=== PATIENT | female | born 1995 | race Caucasian/White ===

== ENCOUNTER 2023-03-01 07:24 | Inpatient (IN) ==
[2023-03-01] MEDS ORDERED: OXYTOCIN 30 UNITS/500 ML BAG IV PRN ×3 (07:42→14:27)
[2023-03-01] MEDS ORDERED: LIDOCAINE 1% LOCAL 20 ML VIAL INFIL PRN (07:42)
[2023-03-01 08:23] LABS: Hematocrit (blood only) 37.9 % (37.0-47.0); Hemoglobin 13.2 g/dl (12.0-16.0); Mean Corpuscular Hemoglobin 31.4 pg (25.0-34.0); Mean Corpuscular Hgb Conc 34.8 g/dL (32.0-36.0); Platelet Count 170 K/uL (130-400); RDW Coefficient of Variation 13.2 % (11.5-14.5); RDW Standard Deviation 42.7 fL (36.4-46.3); Red Blood Count 4.21 M/uL (4.20-5.40); White Blood Count 11.11 K/ul (4.8-10.8)
[2023-03-01] MEDS: LACTATED RINGER'S 1,000 ML IV PRN ×3 (08:25→12:31)
[2023-03-01] MEDS ORDERED: fentaNYL citrate PF 100 MCG/2 ML VIAL ONE (10:16)
[2023-03-01] MEDS ORDERED: BUPIVACAINE 0.25% PF 30 ML VIAL ONE (10:16)
[2023-03-01] MEDS ORDERED: SODIUM CHLORIDE 0.9% PF INJ 10 ML VIAL ONE (10:16)
[2023-03-01] MEDS ORDERED: LIDOCAINE 2%/EPINEPHRINE 1:200,000 20 ML PF ONE (10:16)
[2023-03-01] MEDS ORDERED: ePHEDrine sulfate 50 MG/ML AMP ONE (10:16)
[2023-03-01] MEDS ORDERED: fentaNYL 2MCG/ML ROPIVACAINE 1.25MG/ML 100 ML BAG EPI ONE (10:17)
--- NOTE | 2023-03-01 10:41 | History & Physical Report ---
Date of Service March 01, 2023 Assessment & Plan (1) Encounter for induction of labor: Admission and Anticipated Discharge Date Admission Date: March 01, 2023 History of Present Illness Primary Care Provider: Idalia Hyatt DO Liane is a 27 yo at 40w1d PMHx asthma, depression, GERD, migraine here for induction of labor. She had a singh bulb placed 03/01/23, experienced an episode of hypotension and bradycardia, the singh bulb was subsequently removed. She recovered quickly. She is GBS and Rh negative, received rhogam. Mom is doing well. Planning to breastfeed. FOB is present. Allergies Allergy/AdvReac Type Severity Reaction Status Date / Time aripiprazole [From [facility]] Allergy Intermediate "Zombie" Verified 03/01/23 07:46 Home Medications Medication Instructions Recorded Confirmed Type albuterol sulfate 90 mcg/actuation 2 puff inhalation Q6H PRN 02/07/21 02/28/23 Rx aerosol inhaler (Ventolin HFA) shortness of breath or wheezing #8.5 grams prenat.vits,mary,[id number] 2 tab PO DAILY 04/27/22 03/01/23 History folic acid 5 mg PO DAILY 07/21/22 03/01/23 History Past Med/Surg History Medical History Asthma Depression GERD (gastroesophageal reflux disease) Migraine Surgical History H/O wisdom tooth extraction History of carpal tunnel surgery of right wrist Family History Brother Asthma Grandmother Diabetes Myocardial infarction Father Heart disease Myocardial infarction Hypertension Other Positive home test Denies family history of Ovarian cancer Alzheimer disease Dementia Kidney disease Breast cancer Lung cancer Lung disease Stroke Social History Smoking Status: Never smoker Second Hand Exposure: No; Do You Dip or Chew Tobacco: No; Hx Alcohol Use: No Hx Substance Use: No Preferred Language: Nauruan Communication Ability: Effective Visual Impairment: No Limitations Hearing Ability: Normal 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 Beliefs That Will Affect Care: None marital status: marital status details: Derian (29) [phone] Current Living Situation: Spouse and Family Current Living Situation Comment: lives with Spouse, daughter, 2 cats, 1dog, daughter changing litter current occupational status: employed 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 Other Information That Helps Us Care for You: No Feels Safe at Home: Yes Childhood Exposure to Second-Hand Smoke: No Diet: regular caffeine: Yes Dental Care, Regularly: Yes Physical Activity Frequency: Daily Seatbelt Use: always Sunscreen Use: Yes Assistive Devices: None Physical Exam Physical Exam: General: patient resting in mild discomfort, NAD, non-toxic in appearance, AA&O x 4, answers questions appropriately Skin: warm, dry, intact HEENT: NC/AT, anicteric sclera, conjunctiva without injection, moist mucus membranes Heart: +S1/S2, regular, no m/r/g Lungs: equal air entry bilaterally, no rales/rhonchi/wheezes Abd: +BS, gravid uterus Ext: warm, no clubbing/cyanosis or edema Neuro: nonfocal, patient AA&O x 4, speech intact, no facial droop, moving all extremities on command. Results & Data Results & Data Vital Signs (Past 12 Hours) Vital Signs Temp Pulse Resp BP Pulse Ox 03/01/23 07:48 36.7 C 67 20 107/73 03/01/23 10:36 65 99 03/01/23 10:31 65 122/77 98 03/01/23 09:37 77 18 115/71 03/01/23 08:25 78 18 123/82 03/01/23 07:43 67 107/73 Laboratory Results 03/01/23 Range/Units 07:53 WBC 11.11 H (4.8-10.8) K/ul RBC 4.21 (4.20-5.40) M/uL Hgb 13.2 (12.0-16.0) g/dl Hct 37.9 (37.0-47.0) % MCV 90.0 (80.0-100.0) fL MCH 31.4 (25.0-34.0) pg MCHC 34.8 (32.0-36.0) g/dL RDW Std Deviation 42.7 (36.4-46.3) fL RDW Coeff of Tatiana 13.2 (11.5-14.5) % Plt Count 170 (130-400) K/uL MPV 11.0 (9.4-12.4) fL Supervising Physician Co-Signing Physician Notes Patient seen and evaluated and agree with the above findings and plan Resident Activity Tracking Resident Involvement: Resident Care Provided Care Provided: Adult Hospital Medicine
[2023-03-01] MEDS ORDERED: fentaNYL 2MCG/ML ROPIVACAINE 1.25MG/ML 100 ML BAG EPI PRN (10:42)
[2023-03-01] MEDS ORDERED: NALBUPHINE HCL INJ 10 MG/ML AMP IV PRN (10:42)
[2023-03-01] MEDS ORDERED: NALOXONE HCL 1 MG in SODIUM CHLORIDE 0.9% 1000ML 1,000 ML IV PRN (10:42)
[2023-03-01] MEDS ORDERED: NALOXONE HCL 0.4 MG/1 ML VIAL/CARP IV PRN (10:42)
[2023-03-01] MEDS ORDERED: fentaNYL citrate PF 100 MCG/2 ML VIAL EPI STA (10:42)
[2023-03-01] MEDS ORDERED: ROPIVACAINE 0.5% PF 5 MG/ML 20 ML VIAL EPI PRN (10:42)
[2023-03-01] MEDS ORDERED: fentaNYL citrate PF 100 MCG/2 ML VIAL EPI PRN (10:42)
[2023-03-01] MEDS ORDERED: ePHEDrine sulfate 50 MG/ML AMP IV PRN (10:42)
[2023-03-01] MEDS ORDERED: LIDOCAINE 2%/EPINEPHRINE 1:200,000 20 ML PF EPI STA (10:42)
[2023-03-01] MEDS ORDERED: BUPIVACAINE 0.25% PF 30 ML VIAL EPI PRN (10:42)
[2023-03-01] MEDS ORDERED: SODIUM CHLORIDE 0.9% PF INJ 10 ML VIAL EPI STA (10:42)
[2023-03-01] MEDS ORDERED: LIDOCAINE 2% MPF LOCAL 5 ML VIAL EPI PRN (10:42)
[2023-03-01] MEDS ORDERED: diphenhydrAMINE 50 MG/ML VIAL IV PRN (10:42)
[2023-03-01] MEDS ORDERED: BUPIVACAINE 0.25% PF 30 ML VIAL EPI STA (10:42)
[2023-03-01] MEDS ORDERED: SODIUM CHLORIDE 0.9% PF INJ 10 ML VIAL EPI PRN (10:42)
--- NOTE | 2023-03-01 11:25 | Anesthesiology Consultation ---
Date of Service March 01, 2023 History Height/Weight Height: 5 ft 5 in Weight: 85.729 kg Allergies Allergy/AdvReac Type Severity Reaction Status Date / Time aripiprazole [From [facility]] Allergy Intermediate "Zombie" Verified 03/01/23 07:46 Medications Home Medications Medication Instructions Recorded Confirmed Last Taken albuterol sulfate 90 mcg/actuation 2 puff inhalation Q6H PRN 02/07/21 02/28/23 Unknown aerosol inhaler (Ventolin HFA) shortness of breath or wheezing #8.5 grams prenat.vits,mary,[id number] 2 tab PO DAILY 04/27/22 03/01/23 02/28/23 folic acid 5 mg PO DAILY 07/21/22 03/01/23 02/28/23 Active Medications Generic Name Dose Route Start Last Admin Trade Name Freq PRN Reason Stop Dose Admin Lactated Ringer's 1,000 mls @ 125 mls/hr 03/01/23 07:42 03/01/23 10:55 Lr IV 03/03/23 07:41 999 mls/hr .Q8H PRN Administration L&D Protocol Protocol Oxytocin 30 units in 500 mls @ 6 mls/hr 03/01/23 07:44 03/01/23 09:37 Pitocin IV 03/03/23 07:43 0.36 units/hr .Q24H PRN 6 mls/hr Labor Induction/Augmentation Titration Protocol 0.36 UNITS/HR NPO Date Last Intake of Fluids: 03/01/23 Time Last Intake of Fluids: 10:00 Date Last Intake of Solids: 02/28/23 Time Last Intake of Solids: 11:24 Past Medical History Medical History Asthma Depression GERD (gastroesophageal reflux disease) Migraine Exercise / Class Metabolic Activity II 4-5 Yardwork/Stairs/Walk up hill Past Family History Family History Brother Asthma Grandmother Diabetes Myocardial infarction Father Heart disease Myocardial infarction Hypertension Other Positive home test Denies family history of Ovarian cancer Alzheimer disease Dementia Kidney disease Breast cancer Lung cancer Lung disease Stroke Past Surgical History Surgical History (Reviewed 03/01/23 @ 10:47 by NATIVIDAD Horan H/O wisdom tooth extraction History of carpal tunnel surgery of right wrist Past Anesthesia History No Hx of Anesthesia Complications and No Family Hx of Anesthesia Complications History of PONV No Hx of PONV and No Hx of Motion Sickness Social History Smoking Status: Never smoker Do You Dip or Chew Tobacco: No Hx Alcohol Use: No Hx Substance Use: No Physical Exam Vital Signs Last Vital Signs Temp 36.7 C 03/01/23 07:48 Pulse 67 03/01/23 11:22 Resp 20 03/01/23 10:53 BP 118/73 03/01/23 11:22 Pulse Ox 97 03/01/23 11:21 Constitutional WD/WN, vitals as above cooperative ENMT Thyromental Distance: > or= 3.5 Finger Breadths Mallampati Class: II Neck trachea midline, no thyromegaly Respiratory normal respiratory effort, lungs clear to auscultation Cardiovascular RRR, no murmur, no edema Heart Sounds: normal S1 and normal S2 Palpation: normal PMI Musculoskeletal Head/Neck/Chest: normocephalic and head atraumatic Spine: normal cervical ROM Neurologic normal touch/pain/proprioception, CN's II-XI intact bilaterally (Grossly intact) and moves all extremities Psychiatric A+Ox3, euthymic affect Testing Laboratory Results 03/01/23 07:53
--- NOTE | 2023-03-01 11:48 | Labor Progress Brief Note ---
Date of Service March 01, 2023 Subjective comfortable with epidural. Assessment & Plan (1) Encounter for induction of labor: Plan will see how arom helps labor pattern. c/w pitocin. Admission and Anticipated Discharge Date Admission Date: March 01, 2023 Physical Exam Constitutional: WD/WN, vitals as above Genitourinary: Manual OB Exam: + cervical dilation 5 cm, + cervical effacement (75%), + station -2 and + amniotic fluid (arom) clear OB Exam Monitor Tracing: + external FHT monitor used, + external uterine monitor used, + category I and + normal FHT variability Results & Data Vital Signs (Past 12 Hours) Vital Signs Temp Pulse Resp BP Pulse Ox 03/01/23 07:48 98.1 F 67 20 107/73 03/01/23 11:45 64 117/72 03/01/23 11:41 99 03/01/23 11:41 73 03/01/23 11:41 76 119/87 89 L 03/01/23 11:36 63 97 03/01/23 11:35 61 112/70 03/01/23 11:31 63 97 03/01/23 11:30 60 20 112/73 03/01/23 11:26 65 97 03/01/23 11:24 64 115/72 03/01/23 11:21 65 97 03/01/23 11:22 67 118/73 03/01/23 11:20 64 117/70 03/01/23 11:18 71 119/71 03/01/23 11:16 97 03/01/23 11:16 65 03/01/23 11:16 62 117/72 03/01/23 11:14 68 18 120/74 03/01/23 11:12 76 18 110/74 03/01/23 11:11 69 97 03/01/23 11:09 63 119/63 03/01/23 11:07 68 94 03/01/23 11:06 65 118/80 96 03/01/23 11:04 85 113/77 03/01/23 11:01 70 98 03/01/23 11:02 75 127/80 03/01/23 11:00 78 127/73 03/01/23 10:56 78 99 03/01/23 10:53 69 20 122/75 03/01/23 10:51 78 96 03/01/23 10:46 67 100 03/01/23 10:41 63 96 03/01/23 10:36 65 99 03/01/23 10:31 65 122/77 98 03/01/23 09:37 77 18 115/71 03/01/23 08:25 78 18 123/82 03/01/23 07:43 67 107/73 Coding Level of Care Code None Diagnoses Encounter for induction of labor Z34.90
--- NOTE | 2023-03-01 14:22 | Delivery Summary ---
Vaginal Delivery Summary Date of Service March 01, 2023 Vaginal Delivery Summary The patient dilated to complete and pushed to deliver a viable male Apgars 8 and 9 via over intact perineum.Loose nuchal x 2 reduced at perineum. Mouth and nose bulb suctioned at perineum. Shoulders and body delivered with ease. was vigorous and crying at . Cord clamped at 30 seconds of life and to maternal abdomen where the cord was then doubly clamped and cut. Placenta delivered spontaneously and intact, three-vessel cord. Hemostasis achieved with dilute pitocin and uterine massage and drainage of the bladder for approximately 300 cc under sterile conditions. Cervix and sulci intact. Periclitoral laceration with bleeding, reapproxiimate with 4-0 vicryl for excellent hemostasis. EBL 300 cc. Mother and baby stable in recovery. [facility] Vaginal Delivery Charge Delivery Type Details:
[2023-03-01] MEDS ORDERED: HYDROCORTISONE ACETATE 25 MG SUPP PR PRN (14:27)
[2023-03-01] MEDS ORDERED: ALBUTEROL HFA 8 GM INHALER INH PRN (14:27)
[2023-03-01] MEDS ORDERED: DIPHTHERIA/TETANUS/PERTUSSIS Vaccine (Tdap, Age 7+yrs) 0.5mL SYR/VL IM ONE (14:27)
[2023-03-01] MEDS ORDERED: bisacodyL 10 MG SUPP PR PRN (14:27)
[2023-03-01] MEDS ORDERED: BENZOCAINE 20% SPRY 85 APPLN/85 GM CAN EXT PRN (14:27)
[2023-03-01] MEDS ORDERED: oxyCODONE/ACETAMINOPHEN 5mg/325mg TAB PO PRN (14:27)
[2023-03-01] MEDS ORDERED: ACETAMINOPHEN 325 MG TAB PO PRN (14:27)
[2023-03-01] MEDS ORDERED: OXYTOCIN 20 UNITS in LACTATED RINGER'S 1,000 ML IV SCH (14:30)
--- NOTE | 2023-03-01 15:11 | Anesthesia Procedure Note ---
Date of Service March 01, 2023 Anesthesia Post Epidural Note Vital Signs Vital Signs: Temp Pulse Resp BP Pulse Ox 36.7 C 75 20 101/57 L 96 03/01/23 07:48 03/01/23 15:06 03/01/23 14:20 03/01/23 15:06 03/01/23 14:16 Notes Mental Status: alert / awake / arousable and participated in evaluation Nausea / Vomiting: adequately controlled Pain: adequately controlled Airway Patency, RR, SpO2: stable & adequate BP & HR: stable & adequate Hydration State: stable & adequate Neuraxial Anesthesia: was administered and sensory block is resolving Anesthetic Complications: no major complications apparent and Pt Satisfied with anesthetic care Epidural: Removed without complications and With tip intact
[2023-03-01] MEDS: IBUPROFEN 600 MG TAB PO PRN ×2 (19:04→23:50)
[2023-03-01] MEDS: DOCUSATE SODIUM 100 MG CAP PO SCH (20:15)
--- NOTE | 2023-03-02 07:00 | Obstetrical Progress Note ---
Date of Service March 02, 2023 Assessment & Plan (1) Normal vaginal delivery: Plan: Recovering well, having some crampy pain Not yet stooling Difficulty with Plan 27 yo post day 1 Admission and Anticipated Discharge Date Admission Date: March 01, 2023 Supervising Physician Co-Signing Physician Notes Patient seen with resident and agree with the above findings and plan. Subjective 27 yo post day 1 Ambulation: ambulating normally Voiding: urinating normally, no bowel movement Passing Gas:: Yes Diet Tolerance:: regular diet Lochia:: Small Feeding Type:: breast feeding, having difficulty latching Current Pain Level: Crampy but tolerable Pt crampy this AM, NAD. Difficulty with latching for breast feeding. No NATION, CP, SOB, N/V/D, LE swelling/cramping Review of Systems Review of Systems: reviewed see HPI Physical Exam 2 Physical Exam: General: patient resting comfortably, NAD, non-toxic in appearance, AA&O x 4, answers questions appropriately Skin: warm, dry, intact HEENT: NC/AT, anicteric sclera, conjunctiva without injection, moist mucus membranes, trachea midline, no thyromegaly, no JVD Heart: +S1/S2, regular, no m/r/g Lungs: equal air entry bilaterally, no rales/rhonchi/wheezes Abd: +BS, soft, NT/ND, no masses/organomegaly/ascites, uterine fundus firm at umbilicus Ext: warm, no clubbing/cyanosis or edema, Oralia's neg Neuro: nonfocal, patient AA&O x 4, speech intact, no facial droop, moving all extremities on command. Results & Data Vital Signs (Past 12 Hours) Vital Signs Temp Pulse Resp BP Pulse Ox O2 Del Method 03/02/23 03:00 36.4 C L 58 L 18 105/73 98 Room Air 03/02/23 00:01 36.6 C 59 L 16 101/65 96 Room Air 03/01/23 20:10 36.7 C 72 20 112/77 98 Room Air Laboratory Results 03/02/23 03/01/23 Range/Units 06:39 07:53 WBC 11.11 H (4.8-10.8) K/ul RBC 4.21 (4.20-5.40) M/uL Hgb 13.2 (12.0-16.0) g/dl Hct 37.9 (37.0-47.0) % MCV 90.0 (80.0-100.0) fL MCH 31.4 (25.0-34.0) pg MCHC 34.8 (32.0-36.0) g/dL RDW Std Deviation 42.7 (36.4-46.3) fL RDW Coeff of Tatiana 13.2 (11.5-14.5) % Plt Count 170 (130-400) K/uL MPV 11.0 (9.4-12.4) fL Blood Type Pending Antibody Screen Pending Screen Pending Resident Activity Tracking Resident Involvement: Resident Care Provided Care Provided: Adult Hospital Medicine
[2023-03-02] MEDS: DOCUSATE SODIUM 100 MG CAP PO SCH ×2 (08:26→21:32)
[2023-03-02] MEDS: PRENATAL VITAMIN 1 TAB PO SCH (08:27)
[2023-03-02] MEDS: IBUPROFEN 600 MG TAB PO PRN ×2 (08:27→17:18)
--- NOTE | 2023-03-03 05:20 | Obstetrical Progress Note ---
Date of Service March 03, 2023 Assessment & Plan (1) Normal vaginal delivery: Plan: Recovering well Plan 27 yo post day 1 Admission and Anticipated Discharge Date Admission Date: March 01, 2023 Supervising Physician Co-Signing Physician Notes Resident Physician Supervision Note: I was present with Dr. Carcamo during the history and exam. I discussed the case with the resident and agree with the findings and plan as documented in the note. Any exceptions or clarifications are listed here: PPD#2 doing well. DC instructions reviewed. Documented By: Amrita Cai, Subjective 27 yo post day 2 Ambulation: ambulating normally Voiding: urinating normally, no bowel movement Passing Gas:: Yes Diet Tolerance:: regular diet Lochia:: Small Feeding Type:: breast feeding, having difficulty latching Current Pain Level: Crampy but tolerable Resting comfortably this AM, NAD. Breast feeding improving from yesterday. Baby with improving glucose levels. Mild lower abdominal pain. Passing no clots. No NATION, CP, SOB, N/V/D, LE swelling/cramping Review of Systems Review of Systems: reviewed see HPI Physical Exam Physical Exam: General: patient resting comfortably, NAD, non-toxic in appearance, AA&O x 4, answers questions appropriately Skin: warm, dry, intact HEENT: NC/AT, anicteric sclera, conjunctiva without injection, moist mucus membranes, trachea midline, no thyromegaly, no JVD Heart: +S1/S2, regular, no m/r/g Lungs: equal air entry bilaterally, no rales/rhonchi/wheezes Abd: +BS, soft, NT/ND, no masses/organomegaly/ascites, uterine fundus firm at umbilicus Ext: warm, no clubbing/cyanosis or edema, Oralia's neg Neuro: nonfocal, patient AA&O x 4, speech intact, no facial droop, moving all extremities on command. Results & Data Vital Signs (Past 12 Hours) Vital Signs Temp Pulse Resp BP Pulse Ox O2 Del Method 03/03/23 05:13 36.6 C 60 18 103/67 97 Room Air 03/02/23 21:36 36.6 C 84 18 118/72 96 Room Air Laboratory Results 03/02/23 Range/Units 06:39 Blood Type A Negative Antibody Screen NEGATIVE Screen Negative (Negative) Resident Activity Tracking Resident Involvement: Resident Care Provided Care Provided: Adult Hospital Medicine
[2023-03-03] MEDS: DOCUSATE SODIUM 100 MG CAP PO SCH (09:17)
[2023-03-03] MEDS: PRENATAL VITAMIN 1 TAB PO SCH (09:17)
[2023-03-03] MEDS: IBUPROFEN 600 MG TAB PO PRN (09:17)
== END 2023-03-03 18:00 | disposition home or self-care (01) | DRG 807 ==
LOC: 4S1 07:24 → 4E2 17:00